=== PATIENT | male | born 1970 | race Caucasian/White ===

== ENCOUNTER 2017-07-30 02:24 | Inpatient (IN) | payer MEDICAID ==
--- NOTE | 2017-07-30 02:45 | CPEKG ---
Heart Rate: 78 RR Interval: 769 P-R Interval: 148 QRSD Interval: 88 QT Interval: 392 QTC Interval: 447 P [place]: 59 QRS [place]: 7 T Wave [place]: 42 EKG Severity - NORMAL ECG - EKG Impression: SINUS RHYTHM Electronically Signed By: Geraldo King 30-Jul-2017 06:38:42
[2017-07-30] MEDS ORDERED: NS 1,000 ML IV ONE (03:45)
[2017-07-30] MEDS ORDERED: HALOPERIDOL LACT 5 MG/ML INJ IVP ONE (03:46)
[2017-07-30 04:02] LABS: ABSOLUTE IMMATURE GRANULOCYTES 0.11 10^3/uL (0.00-0.10); ADD DIFF? NO; ADD MORPH? NO; ADD SCAN? NO; ATYPICAL LYMPHOCYTE FLAG 20 (0-99); FRAGMENT RBC FLAG 0 (0-99); HEMATOCRIT 24.4 % (40.0-51.0); HEMOGLOBIN 7.7 g/dL (13.7-17.5); LEFT SHIFT FLG 0 (0-99); LIPEMIA HEMOLYSIS FLAG 80 (0-99); MEAN CELL HEMOGLOBIN 30.1 pg (27.9-34.1); MEAN CELL HEMOGLOBIN CONCENTR. 31.6 g/dL (32.4-36.7); MEAN CELL VOLUME 95.3 fL (81.5-99.8); MEAN PLATELET VOLUME 9.8 fL (8.7-11.7); PLATELET CLUMPS FLAG 0 (0-99); PLATELET COUNT 264 10^3/uL (150-400); RED BLOOD CELL COUNT 2.56 10^6/uL (4.40-6.38); RED CELL DISTRIBUTION WIDTH 15.1 % (11.5-15.2)
[2017-07-30 04:14] LABS: ALANINE AMINOTRANSFERASE 35 IU/L (21-72); ALKALINE PHOSPHATASE 99 IU/L (38-126); ANION GAP 7 mEq/L (8-16); ASPARTATE AMINOTRANSFERASE 61 IU/L (17-59); BILIRUBIN,TOTAL 0.5 mg/dL (0.1-1.4); BILIRUBIN-CONJUGATED 0.5 mg/dL (0.0-0.5); CALCIUM 7.5 mg/dL (8.5-10.4); CARBON DIOXIDE 20 mEq/l (22-31); CHLORIDE 111 mEq/L (97-110); CREATININE 1.2 mg/dL (0.7-1.3); GLOMERULAR FILTRATION RATE > 60; GLUCOSE 88 mg/dL (70-100); POTASSIUM 4.4 mEq/L (3.5-5.2); SODIUM 138 mEq/L (134-144); SPECIMEN HEMOLYSIS 142
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
[2017-07-30 04:59] LABS: ETHANOL SERUM < 10 mg/dL (0-10); SPECIMEN HEMOLYSIS 140
[2017-07-30] MEDS ORDERED: ONDANSETRON DISINTEGRATING 4 MG TAB PO PRN (05:24)
[2017-07-30] MEDS ORDERED: ONDANSETRON 4 MG/2 ML VIAL IVP PRN ×2 (05:24→11:54)
[2017-07-30] MEDS ORDERED: NS 1,000 ML IV SCH (05:30)
--- NOTE | 2017-07-30 05:37 | PDGENHP ---
History and Physical - Chief Complaint Melena - History of Present Illness 46 yo M w/ hx of HTN comes to ED with complaints of coffee ground emesis and melena for 2-3 days. History was severely limited by patient's mental status, which was altered after administration of haloperidol in the ED. Per discussion with ED physician Dr. King, patient left AMA from [facility] a few days ago due to unclear reasons. He states that he has had coffee ground emesis and melena for 2-3 days. He drinks 1 pint of liquor daily. History Information - Allergies/Home Medication List Allergies/Adverse Reactions: No Known Allergies Allergy (Unverified 07/30/17 02:29) Home Medications: Lasix 07/30/17 [Last Taken Unknown] Lisinopril 07/30/17 [Last Taken Unknown] I have personally reviewed and updated: family history, medical history - Past Medical History hypertension - Family History Additional family history: Asked but patient unable to provide - Social History Smoking Status: Former smoker Alcohol Use: Heavy (1 fifth of liquor daily) Review of Systems Review of Systems: ROS: 10pt was reviewed & negative except for what was stated in HPI & below Physical Exam Physical Exam: Temp Pulse Resp BP Pulse Ox 36.5 C 98 22 H 190/134 H 99 07/30/17 02:30 07/30/17 02:30 07/30/17 02:30 07/30/17 02:30 07/30/17 02:30 Constitutional: uncomfortable, unkempt Eyes: PERRL, EOMI Ears, Nose, Mouth, Throat: moist mucous membranes, no oral mucosal ulcers Cardiovascular: regular rate and rhythym, systolic murmur (2/6 @ LUSB) Respiratory: no respiratory distress, clear to auscultation Gastrointestinal: normoactive bowel sounds, soft, non-tender abdomen Skin: warm, No erythema Musculoskeletal: full muscle strength, no muscle tenderness Neurologic: AAOx3, CN II-XII Intact Psychiatric: encephalopathic, anxious Lab Data & Imaging Review 07/30/17 03:55 07/30/17 03:55 WBC 10.76 10^3/uL (3.80-9.50) H 07/30/17 03:55 RBC 2.56 10^6/uL (4.40-6.38) L 07/30/17 03:55 Hgb 7.7 g/dL (13.7-17.5) L 07/30/17 03:55 Hct 24.4 % (40.0-51.0) L 07/30/17 03:55 MCV 95.3 fL (81.5-99.8) 07/30/17 03:55 MCH 30.1 pg (27.9-34.1) 07/30/17 03:55 MCHC 31.6 g/dL (32.4-36.7) L 07/30/17 03:55 RDW 15.1 % (11.5-15.2) 07/30/17 03:55 Plt Count 264 10^3/uL (150-400) 07/30/17 03:55 MPV 9.8 fL (8.7-11.7) 07/30/17 03:55 Neut % (Auto) 70.8 % (39.3-74.2) 07/30/17 03:55 Lymph % (Auto) 16.2 % (15.0-45.0) 07/30/17 03:55 Long % (Auto) 8.0 % (4.5-13.0) 07/30/17 03:55 Eos % (Auto) 2.9 % (0.6-7.6) 07/30/17 03:55 Baso % (Auto) 1.1 % (0.3-1.7) 07/30/17 03:55 Nucleat RBC Rel Count 0.0 % (0.0-0.2) 07/30/17 03:55 Absolute Neuts (auto) 7.62 10^3/uL (1.70-6.50) H 07/30/17 03:55 Absolute Lymphs (auto) 1.74 10^3/uL (1.00-3.00) 07/30/17 03:55 Absolute Monos (auto) 0.86 10^3/uL (0.30-0.80) H 07/30/17 03:55 Absolute Eos (auto) 0.31 10^3/uL (0.03-0.40) 07/30/17 03:55 Absolute Basos (auto) 0.12 10^3/uL (0.02-0.10) H 07/30/17 03:55 Absolute Nucleated RBC 0.00 10^3/uL (0-0.01) 07/30/17 03:55 Immature Gran % 1.0 % (0.0-1.1) 07/30/17 03:55 Immature Gran # 0.11 10^3/uL (0.00-0.10) H 07/30/17 03:55 Sodium 138 mEq/L (134-144) 07/30/17 03:55 Potassium 4.4 mEq/L (3.5-5.2) 07/30/17 03:55 Chloride 111 mEq/L (97-110) H 07/30/17 03:55 Carbon Dioxide 20 mEq/l (22-31) L 07/30/17 03:55 Anion Gap 7 mEq/L (8-16) L 07/30/17 03:55 BUN 26 mg/dL (7-23) H 07/30/17 03:55 Creatinine 1.2 mg/dL (0.7-1.3) 07/30/17 03:55 Estimated GFR > 60 07/30/17 03:55 Glucose 88 mg/dL (70-100) 07/30/17 03:55 Calcium 7.5 mg/dL (8.5-10.4) L 07/30/17 03:55 Total Bilirubin 0.5 mg/dL (0.1-1.4) 07/30/17 03:55 Conjugated Bilirubin 0.5 mg/dL (0.0-0.5) 07/30/17 03:55 Unconjugated Bilirubin 0.0 mg/dL (0.0-1.1) 07/30/17 03:55 AST 61 IU/L (17-59) H 07/30/17 03:55 ALT 35 IU/L (21-72) 07/30/17 03:55 Alkaline Phosphatase 99 IU/L (38-126) 07/30/17 03:55 Troponin I 0.020 ng/mL (0.000-0.034) 07/30/17 03:55 Total Protein 5.0 g/dL (6.3-8.2) L 07/30/17 03:55 Albumin 2.0 g/dL (3.5-5.0) L 07/30/17 03:55 Lipase 396 IU/L (23-300) H 07/30/17 03:55 Specimen Hemolysis 140 07/30/17 03:55 Ethyl Alcohol < 10 mg/dL (0-10) 07/30/17 03:55 Visualized and Interpreted Chest x-ray results: Yes Chest X-Ray results: no infiltrate Visualized and Interpreted EKG results: Yes EKG Interpretation: Positive for: normal sinsus rhythm, NS ST wave abnormalities Assessment & Plan Assessment: 46 yo M w/ ETOH abuse presents with coffee ground emesis and melena for 2 days. Plan: 1. Upper GI bleed - Suspect alcoholic gastritis/esophagitis or ulcerative disease based on heavy drinking history. No active bleeding noted and patient hemodynamically stable at this time. Hemoglobin 7.7 on admission. - mIVF, PPI IV BID - Repeat CBC at noon - Maintain NPO - Consult GI for EGD 2. ABLA - 2/2 above, treat acutely as above, transfuse for Hgb<7. 3. Hypertension - Uncontrolled on admission; patient reports takes lisinopril as outpatient. - Will monitor and treat conservatively with PRN agents until further stabilize 4. ETOH abuse - Patient reports drinking 1 pint of liquor daily. Last drink 4 days ago, per patient report. BAL undetectable on admission. - Will not order CIWA noting no signs of withdrawal currently - Monitor for emerging signs of withdrawal - mIVF, MVI, folate, thiamine Diet - NPO Code - Full Ppx - SCDs Dispo - Admit to OBS status
[2017-07-30] MEDS ORDERED: LABETALOL HCL 50 MG/10 ML SYR IVP ONE ×2 (06:05→06:30)
[2017-07-30] MEDS ORDERED: LABETALOL HCL 5 MG/ML 20 ML MDV ONE (06:07)
[2017-07-30] MEDS: THIAMINE HCL 100 MG TAB PO SCH (08:31)
[2017-07-30] MEDS: MULTIVITAMINS 1 EACH TAB PO SCH (08:31)
[2017-07-30] MEDS: FOLIC ACID 1 MG TAB PO SCH (08:31)
[2017-07-30] MEDS ORDERED: PANTOPRAZOLE SODIUM 40 MG in NS 100 ML IV SCH (09:00)
[2017-07-30] MEDS ORDERED: PROPOFOL 200 MG/20 ML VIAL ONE (11:27)
--- NOTE | 2017-07-30 11:29 | PDANEPAE ---
ANE Past Medical History - Pulmonary History Hx Oxygen in Use at Home: No Hx Sleep Apnea: Yes Sleep Apnea Screening Result - Last Documented: Positive - Endocrine History Hx Diabetes: No ANE Review of Systems Review of Systems: ANE Patient History - Allergies Allergies/Adverse Reactions: No Known Allergies Allergy (Unverified 07/30/17 02:29) - Home Medications Home Medications: Furosemide [Lasix 20 MG (*)] 20 mg PO DAILY 07/30/17 [Last Taken Unknown] Lisinopril [Zestril 20 mg (*)] 20 mg PO DAILY 07/30/17 [Last Taken Unknown] amLODIPine BESYLATE [Norvasc 10 mg (*)] 10 mg PO DAILY 07/30/17 [Last Taken Unknown] - NPO status NPO Since - Liquids (Date): 07/29/17 NPO Since - Liquids (Time): 23:00 NPO Since - Solids (Date): 07/29/17 NPO Since - Solids (Time): 23:00 - Smoking Hx Smoking Status: Former smoker - Alcohol Use Alcohol Use: Heavy (1 fifth of liquor daily) ANE Labs/Vital Signs - Labs Result Diagrams: 07/30/17 03:55 07/30/17 03:55 - Vital Signs Blood Pressure: 130/96 Heart Rate: 70 Respiratory Rate: 16 O2 Sat (%): 92 Height: 182.88 cm Weight: 79.379 kg ANE Physical Exam - Airway Neck exam: short neck Mallampati Score: Class 4 Mouth exam: poor dentition - Pulmonary Pulmonary: no respiratory distress - Cardiovascular Cardiovascular: regular rate and rhythym - ASA Status ASA Status: IV (pt obtunded 2 to medication given in ER)
[2017-07-30] MEDS ORDERED: LIDOCAINE 2% 100 MG/5 ML SYR ONE (11:39)
[2017-07-30] MEDS ORDERED: MIDAZOLAM 2 MG/2 ML VIAL ONE (11:40)
[2017-07-30] MEDS ORDERED: hydrALAZINE 20 MG/ML VIAL ONE (11:43)
--- NOTE | 2017-07-30 11:53 | POSTANESTH ---
Post Anesthetic Evaluation Cardiovascular Status: Normal, Stable, Similar to Pre-Op Cond Respiratory Status: Similar to Pre-op Cond. Level of Consciousness/Mental Status: Other, See Comment Pain Control: Adequate, Prn Tx Ordered Nausea/Vomiting Control: Adequate, Prn Tx Ordered Complications Possibly Related to Anesthesia: None Noted (PT ms SIMILAR TO PRE OP)
[2017-07-30] MEDS ORDERED: NALOXONE HCL 0.4 MG/ML INJ IVP PRN (11:54)
--- NOTE | 2017-07-30 12:45 | GPN ---
[f rep st] PROCEDURE NOTE PROCEDURE: Esophagogastroduodenoscopy with biopsy. PREOPERATIVE DIAGNOSIS: Hematemesis. POSTOPERATIVE DIAGNOSES: 1. Severe erosive esophagitis with ulceration extending from 40 to 35 cm, status post biopsy. 2. Moderate sized hiatal hernia. 3. Erosions in the gastric antrum. 4. Normal duodenum. 5. Status post biopsy of the antrum. INDICATIONS: 46-year-old homeless alcoholic actively drinking presented with nausea, vomiting, hemat emesis, and melena. The patient did have a drop in hematocrit. He was hemodynamically stable. He r eports a history of GI bleeding before. Has had an upper endoscopy at [facility] about a year ago . Was noted to have some mild LFT abnormalities on admission. PHYSICAL EXAMINATION: VITAL SIGNS: Stable. LUNGS: Clear. CARDIAC: Normal S1, S2. NEUROLOGIC: Patient is awake but not able to give consent. He is oriented to person but not place. The patient had been sedated in the hospital. Consent was considered emergent. FINDINGS OF PROCEDURE: Patient placed in the left lateral decubitus position. GIF-180 video scope w as passed in the oropharynx under direct visualization. The proximal esophagus remarkable for marked erosive ulcerative esophagitis from 35-40 cm. Biopsies obtained. GE junction is about 40 cm. Ther e was a moderate size hiatal hernia. Endoscope was passed to the pylorus and into the antrum. There were a few scattered antral erosions. No evidence of blood within the stomach. No ulcerations iden tified. Endoscope was passed through the pylorus in the 1st and 2nd portion of duodenum. Duodenal s weep was normal. Endoscope was brought back in the stomach. Retroflexed view of the stomach reveale d a normal angularis, fundus, and cardia. Endoscope was un-retroflexed. Biopsies were taken the ant rum body for H pylori. Endoscope was brought back in the distal esophagus. Esophageal biopsies obta ined. Endoscope was then withdrawn. IMPRESSION: Severe erosive esophagitis in the setting of nausea and vomiting in an alcoholic. RECOMMENDATIONS: 1. Await biopsy results. Continue on pantoprazole 40 mg b.i.d. 2. Patient is scheduled for right upper quadrant ultrasound. After ultrasound, may start on clear l iquid diet and advance as tolerated. Hepatitis B and C serologies also have been sent. For hepatiti s B surface antigen, HCV antibody. Thank you for allowing me to participate in the care of this patient. /[id number]/MODL
[2017-07-30] MEDS ORDERED: chlordiazePOXIDE 25 MG CAP PO ONE (13:12)
--- NOTE | 2017-07-30 13:32 | HOSPPROG ---
Hospitalist Progress Note Assessment/Plan: #erosive gastritis #acute blood loss anemia #possible etoh withdrawal #uncontrolled htn plan cont bid protonix etoh cessation home meds reconciled load with librium and cont ciwa abd us scheduled for am Subjective: wants to eat. no chest pain or sob Objective: Vital Signs Temp Pulse Resp BP Pulse Ox 37.1 C 83 26 H 176/137 H 95 07/30/17 12:27 07/30/17 12:27 07/30/17 12:31 07/30/17 12:31 07/30/17 12:27 07/29/17 07/30/17 07/31/17 05:59 05:59 05:59 Intake Total 1000 Balance 1000 gen nad cv rrr pulm clear abd soft +bs neuro tremulous ICD10 Worksheet Patient Problems: Problems Problem Status Onset GI bleed Acute Chest pain Acute Anemia Acute
[2017-07-30 13:48] LABS: % IMMATURE GRANULYOCYTES 1.4 % (0.0-1.1); ABSOLUTE IMMATURE GRANULOCYTES 0.14 10^3/uL (0.00-0.10); ADD DIFF? NO; ADD MORPH? NO; ADD SCAN? NO; ATYPICAL LYMPHOCYTE FLAG 20 (0-99); FRAGMENT RBC FLAG 0 (0-99); HEMATOCRIT 27.4 % (40.0-51.0); HEMOGLOBIN 8.6 g/dL (13.7-17.5); LEFT SHIFT FLG 10 (0-99); LIPEMIA HEMOLYSIS FLAG 80 (0-99); MEAN CELL HEMOGLOBIN 30.1 pg (27.9-34.1); MEAN CELL HEMOGLOBIN CONCENTR. 31.4 g/dL (32.4-36.7); MEAN CELL VOLUME 95.8 fL (81.5-99.8); MEAN PLATELET VOLUME 9.5 fL (8.7-11.7); PLATELET CLUMPS FLAG 0 (0-99); PLATELET COUNT 303 10^3/uL (150-400); RED BLOOD CELL COUNT 2.86 10^6/uL (4.40-6.38); RED CELL DISTRIBUTION WIDTH 15.2 % (11.5-15.2)
[2017-07-30] MEDS: PANTOPRAZOLE SODIUM 40 MG TAB PO SCH ×2 (13:53→20:16)
[2017-07-30] MEDS: LISINOPRIL 20 MG TAB PO SCH (13:53)
--- NOTE | 2017-07-30 14:25 | GCON ---
[f rep st] CONSULTATION DATE OF CONSULTATION: 07/30/2017 CHIEF COMPLAINT: Melena, hematemesis, HISTORY OF PRESENT ILLNESS: I have been asked to see in consultation this 46- year-old gentleman from Dr. Zamora for GI bleeding. This 46-year-old male is homeless. He has a history of hypertension. He also has a history of significant alcohol use. He presented to the Emergency Department with complains of coffee-grounds emesis and also melena for 2-3 days. He does have a similar history in the past. He reported that he had an upper endoscopy done at [facility]. He is unclear of the findings and records are not available. He was hemodynamically stable, but did have a drop in his hematocrit. I was asked to see the patient for further evaluation. He apparently was seen at [facility] recently left for similar symptoms, but left against medical advice. PAST MEDICAL HISTORY: Remarkable for chronic alcohol abuse, hypertension, history of hepatitis, a presumed alcoholic. SOCIAL HISTORY: He is a smoker now. He drinks alcohol, smokes marijuana. FAMILY HISTORY: Negative as it pertains to HPI. MEDICATIONS: None prior to admission. ALLERGIES: No known drug allergies. REVIEW OF SYSTEMS: Negative for 10 systems, other than mentioned in HPI. PHYSICAL EXAM: VITAL SIGNS: Blood pressure 130/96, heart rate of 70, respiratory rate 16, 92% saturation, temperature 36.4. GENERAL: The patient is somewhat sleepy, but responsive. Dishevelled appearing. HEENT: Normocephalic, atraumatic. EOMI. Mucous membranes dry. NECK: Supple. No cervical adenopathy or thyromegaly. LUNGS: Clear. CARDIAC: Normal S1, S2 without murmur. ABDOMEN: Soft , nontender. Positive bowel sounds. EXTREMITIES: Without clubbing, cyanosis, edema. SKIN: Warm, dry, intact. MUSCULOSKELETAL: Full muscle strength. No muscle tenderness. NEUROLOGIC: Nonfocal. PSYCHIATRIC: The patient is difficult to assess. Very sleepy, but does answer questions appropriately. LABORATORY DATA: White count of 10.76, hemoglobin 7.7, hematocrit 24.4. Serum chemistry: Serum sodium of 138, potassium 4.4, chloride of 111, BUN of 26, creatinine 1.2. Liver function tests: ALT of 35, AST of 61, total bilirubin of 0.5. Lipase of 396. IMPRESSION: A 46-year-old male, a chronic alcoholic, with hematemesis, melena consistent with upper gastrointestinal bleed. The patient with probably alcohol- induced gastritis, rule out PUD, erosive esophagitis. Patient with probable underlying liver disease, rule out significant portal hypertension and varices. RECOMMENDATIONS: IV Protonix, n.p.o., proceed with urgent upper endoscopy. Would recommend additional labs due to abnormal liver function tests with screen for chronic active hepatitis C and B. Would also recommend a right upper quadrant ultrasound. Will follow with you. Thank you for allowing me to participate in the care of this patient. /[id number]/MODL MTDD
[2017-07-30] MEDS: chlordiazePOXIDE 25 MG CAP PO PRN ×2 (18:50→21:44)
[2017-07-31] MEDS: chlordiazePOXIDE 25 MG CAP PO PRN ×4 (05:14→20:46)
[2017-07-31] MEDS: oxyCODONE IR 5 MG TAB PO PRN ×3 (08:26→20:46)
[2017-07-31] MEDS: MULTIVITAMINS 1 EACH TAB PO SCH (08:27)
[2017-07-31] MEDS: PANTOPRAZOLE SODIUM 40 MG TAB PO SCH ×2 (08:27→20:38)
[2017-07-31] MEDS: LISINOPRIL 20 MG TAB PO SCH (08:27)
[2017-07-31] MEDS: FOLIC ACID 1 MG TAB PO SCH (08:27)
[2017-07-31] MEDS: THIAMINE HCL 100 MG TAB PO SCH (08:27)
[2017-07-31 08:49] LABS: % IMMATURE GRANULYOCYTES 1.6 % (0.0-1.1); ABSOLUTE IMMATURE GRANULOCYTES 0.17 10^3/uL (0.00-0.10); ADD DIFF? NO; ADD MORPH? NO; ADD SCAN? NO; ATYPICAL LYMPHOCYTE FLAG 30 (0-99); FRAGMENT RBC FLAG 0 (0-99); HEMATOCRIT 23.6 % (40.0-51.0); HEMOGLOBIN 7.4 g/dL (13.7-17.5); LEFT SHIFT FLG 10 (0-99); LIPEMIA HEMOLYSIS FLAG 80 (0-99); MEAN CELL HEMOGLOBIN 30.2 pg (27.9-34.1); MEAN CELL HEMOGLOBIN CONCENTR. 31.4 g/dL (32.4-36.7); MEAN CELL VOLUME 96.3 fL (81.5-99.8); MEAN PLATELET VOLUME 9.3 fL (8.7-11.7); PLATELET CLUMPS FLAG 0 (0-99); PLATELET COUNT 267 10^3/uL (150-400); RED BLOOD CELL COUNT 2.45 10^6/uL (4.40-6.38); RED CELL DISTRIBUTION WIDTH 15.5 % (11.5-15.2)
[2017-07-31 09:10] LABS: ANION GAP 8 mEq/L (8-16); CALCIUM 7.6 mg/dL (8.5-10.4); CARBON DIOXIDE 19 mEq/l (22-31); CHLORIDE 111 mEq/L (97-110); CREATININE 1.2 mg/dL (0.7-1.3); GLOMERULAR FILTRATION RATE > 60; GLUCOSE 151 mg/dL (70-100); MAGNESIUM 1.2 mg/dL (1.6-2.3); POTASSIUM 3.6 mEq/L (3.5-5.2); SODIUM 138 mEq/L (134-144)
--- NOTE | 2017-07-31 14:33 | SOAPPROG ---
SOAP Progress Note Assessment/Plan: Assessment: Severe erosive esophagitis, no signs or symptoms of bleeding HCV Ab positive Chronic Etoh use Plan: 1. Advance diet as tolerated 2. PPI Pantoprazole 40 mg daily 3. Avoid Etoh 4. Gastric/esophageal biopsies pending. If h. pylori positive would treat x 2 weeks abx 5. Ideally needs work up and follow up for treatment of HCV No acute GI issues at this point. Will sign off. Please call with further questions 07/31/17 14:29 Subjective: CC: Hematemesis Patient sleeping Objective: Vital Signs Temp Pulse Resp BP Pulse Ox 36.9 C 93 20 148/85 H 93 07/30/17 19:27 07/31/17 11:43 07/31/17 11:43 07/31/17 11:43 07/31/17 11:43 Laboratory Results 07/31/17 08:40 07/31/17 08:40 07/30/17 07/31/17 08/01/17 05:59 05:59 05:59 Intake Total 1000 Output Total 2600 Balance -1600 Generic Name Dose Route Start Last Admin Trade Name Freq PRN Reason Stop Dose Admin Acetaminophen 650 mg 07/30/17 05:24 Tylenol PO 01/26/18 05:23 Q4HRS PRN Pain, Mild/Fever, Can Take PO Amlodipine Besylate 10 mg 07/30/17 13:10 07/31/17 08:27 Norvasc PO 01/26/18 13:09 10 mg DAILY YANIRA Administration Chlordiazepoxide HCl 25 - 50 mg 07/31/17 08:37 07/31/17 08:44 Librium PO 01/27/18 08:36 50 mg Q4 PRN Administration Agitation Clonidine 0.1 mg 07/31/17 09:15 07/31/17 10:29 Catapres PO 01/27/18 09:14 0.1 mg BID YANIRA Administration Folic Acid 1 mg 07/30/17 09:00 07/31/17 08:27 Folic Acid PO 01/26/18 08:59 1 mg DAILY YANIRA Administration Sodium Chloride 1,000 mls @ 125 mls/hr 07/30/17 05:30 07/30/17 08:31 Ns IV 01/26/18 05:29 1,000 mls CONT YANIRA Administration Lisinopril 20 mg 07/30/17 13:10 07/31/17 08:27 Zestril PO 01/26/18 13:09 20 mg DAILY YANIRA Administration Morphine Sulfate 1 - 2 mg 07/30/17 05:24 Morphine IVP 08/09/17 05:23 Q1HR PRN Pain, Severe Unable to Take PO Multivitamins 1 each 07/30/17 09:00 07/31/17 08:27 Tab-A-Chet PO 01/26/18 08:59 1 each DAILY YANIRA Administration Ondansetron HCl 4 mg 07/30/17 05:24 Zofran IVP 01/26/18 05:23 Q4HRS PRN Nausea/Vomiting, Can't Take PO Ondansetron HCl 4 mg 07/30/17 05:24 Zofran Odt PO 01/26/18 05:23 Q4HRS PRN Nausea/Vomiting, Use 1st Oxycodone HCl 5 - 10 mg 07/30/17 05:24 07/31/17 08:26 Oxycodone Ir PO 08/09/17 05:23 5 mg Q3HRS PRN Administration Pain, Severe Able to Take PO Pantoprazole Sodium 40 mg 07/30/17 13:15 07/31/17 08:27 Protonix PO 01/26/18 13:14 40 mg BID YANIRA Administration Thiamine HCl 100 mg 07/30/17 09:00 07/31/17 08:27 Vitamin B-1 PO 01/26/18 08:59 100 mg DAILY YANIRA Administration Discontinued Medications Generic Name Dose Route Start Last Admin Trade Name Freq PRN Reason Stop Dose Admin Chlordiazepoxide HCl 50 mg 07/30/17 13:12 07/30/17 13:53 Librium PO 07/30/17 13:13 50 mg ONCE ONE Administration Chlordiazepoxide HCl 25 mg 07/30/17 13:12 07/31/17 05:14 Librium PO 01/26/18 13:11 25 mg Q8 PRN Administration Agitation Clonidine 0.1 mg 07/30/17 19:30 07/30/17 20:16 Catapres PO 07/30/17 19:31 0.1 mg ONCE ONE Administration Haloperidol Lactate 2.5 mg 07/30/17 03:46 07/30/17 04:17 Haldol Injection IVP 07/30/17 03:47 2.5 mg EDNOW ONE Administration Hydralazine HCl Confirm 07/30/17 11:43 Apresoline Administered 07/30/17 11:44 Dose 20 mg .ROUTE .STK-MED ONE Sodium Chloride 1,000 mls @ 0 mls/hr 07/30/17 03:45 07/30/17 04:17 Ns IV 07/30/17 03:46 1,000 mls ONCE ONE Administration Wide Open Pantoprazole Sodium 40 mg/ 100 mls @ 200 mls/hr 07/30/17 09:00 07/30/17 08:31 Sodium Chloride IV 01/26/18 08:59 100 mls BID YANIRA Administration Labetalol HCl 10 mg 07/30/17 06:05 07/30/17 06:18 Labetalol Hcl IVP 07/30/17 06:06 10 mg ONCE ONE Administration Labetalol HCl Confirm 07/30/17 06:07 Trandate Injection Administered 07/30/17 06:08 Dose 100 mg .ROUTE .STK-MED ONE Labetalol HCl 10 mg 07/30/17 06:30 07/30/17 06:38 Labetalol Hcl IVP 07/30/17 06:31 10 mg ONCE ONE Administration Lidocaine HCl Confirm 07/30/17 11:39 Lidocaine Hcl 2% Administered 07/30/17 11:40 Dose 100 mg .ROUTE .STK-MED ONE Midazolam HCl Confirm 07/30/17 11:40 Versed Administered 07/30/17 11:41 Dose 2 mg .ROUTE .STK-MED ONE Naloxone HCl 0.1 mg 07/30/17 11:54 Narcan IVP 07/30/17 12:54 Q2M PRN PACU Resp Rate <10/min Ondansetron HCl 2 - 4 mg 07/30/17 11:54 Zofran IVP 07/30/17 12:54 Q10M PRN PACU, Nausea/Vomiting Propofol Confirm 07/30/17 11:27 Diprivan Administered 07/30/17 11:28 Dose 200 mg .ROUTE .STK-MED ONE Physical Exam - Physical Exam General Appearance: other (Sleepy but arousable) Respiratory: lungs clear Cardiac/Chest: regular rate, rhythm Abdomen: normal bowel sounds, non-tender, soft ICD10 Worksheet Patient Problems: Problems Problem Status Onset Anemia Acute Chest pain Acute GI bleed Acute
--- NOTE | 2017-07-31 15:48 | HOSPPROG ---
Hospitalist Progress Note Assessment/Plan: #erosive gastritis #acute blood loss anemia #possible etoh withdrawal #uncontrolled htn # hepatitis-C plan cont bid protonix etoh cessation continue librium and ciwa start clonidine recommend outpatient treatment for hepatitis-C disposition: Patient will be changed to inpatient status given his persistent hypertension and anemia. Will repeat labs in the morning. If his blood pressure is controlled and his H&H is stable will likely be able to discharge tomorrow. Subjective: Denies any abdominal pain. He has had no further bleeding. He does reported tremor. Denies any hallucinations. Objective: Vital Signs Temp Pulse Resp BP Pulse Ox 36.9 C 93 20 148/85 H 93 07/30/17 19:27 07/31/17 11:43 07/31/17 11:43 07/31/17 11:43 07/31/17 11:43 Laboratory Results 07/31/17 08:40 07/31/17 08:40 07/30/17 07/31/17 08/01/17 05:59 05:59 05:59 Intake Total 1000 Output Total 2600 Balance -1600 - Physical Exam Constitutional: no apparent distress Cardiovascular: regular rate and rhythym, no murmur, rub, or gallop Respiratory: no respiratory distress, no rales or rhonchi, clear to auscultation Gastrointestinal: normoactive bowel sounds, soft, non-tender abdomen, no palpable masses, No guarding, No rebound Neurologic: AAOx3, CN II-XII Intact, other ( Tremor) Psychiatric: not encephalopathic, anxious, agitated ICD10 Worksheet Patient Problems: Problems Problem Status Onset GI bleed Acute Chest pain Acute Anemia Acute
--- NOTE | 2017-07-31 16:49 | ASMTCMCOM ---
CM Note CM Note Notes: Pt has been admitted with a lower GI bleed. He has a hx of etoh abuse and is on CIWA protocol. He lives in [place]. He was at [facility] a few days ago for the same sx and left AMA. S/p EGD and bx. Per RN, pt has been uncooperative. CM will follow for any d/c needs. Date Signed: 07/31/2017 04:49 PM Electronically Signed By:Vandana Mir
[2017-08-01] MEDS: chlordiazePOXIDE 25 MG CAP PO PRN ×3 (01:26→23:25)
[2017-08-01] MEDS: oxyCODONE IR 5 MG TAB PO PRN ×2 (02:15→13:12)
[2017-08-01 05:23] LABS: % IMMATURE GRANULYOCYTES 2.1 % (0.0-1.1); ABSOLUTE IMMATURE GRANULOCYTES 0.23 10^3/uL (0.00-0.10); ADD DIFF? NO; ADD MORPH? NO; ADD SCAN? NO; ATYPICAL LYMPHOCYTE FLAG 30 (0-99); FRAGMENT RBC FLAG 30 (0-99); HEMATOCRIT 25.3 % (40.0-51.0); LEFT SHIFT FLG 20 (0-99); LIPEMIA HEMOLYSIS FLAG 80 (0-99); MEAN CELL HEMOGLOBIN 30.2 pg (27.9-34.1); MEAN CELL HEMOGLOBIN CONCENTR. 31.6 g/dL (32.4-36.7); MEAN CELL VOLUME 95.5 fL (81.5-99.8); MEAN PLATELET VOLUME 9.1 fL (8.7-11.7); PLATELET CLUMPS FLAG 0 (0-99); PLATELET COUNT 351 10^3/uL (150-400); RED BLOOD CELL COUNT 2.65 10^6/uL (4.40-6.38); RED CELL DISTRIBUTION WIDTH 15.3 % (11.5-15.2)
[2017-08-01 05:37] LABS: ANION GAP 6 mEq/L (8-16); CALCIUM 7.9 mg/dL (8.5-10.4); CARBON DIOXIDE 25 mEq/l (22-31); CHLORIDE 107 mEq/L (97-110); CREATININE 1.3 mg/dL (0.7-1.3); GLOMERULAR FILTRATION RATE 59; GLUCOSE 93 mg/dL (70-100); MAGNESIUM 1.1 mg/dL (1.6-2.3); POTASSIUM 3.8 mEq/L (3.5-5.2); SODIUM 138 mEq/L (134-144)
[2017-08-01] MEDS ORDERED: PROTOCOL MAGNESIUM 1 DOSE IV PRN (09:13)
[2017-08-01] MEDS ORDERED: MAGNESIUM SULF 2 GM/WATER 50 ML IV ONE (09:44)
[2017-08-01] MEDS: THIAMINE HCL 100 MG TAB PO SCH (10:13)
[2017-08-01] MEDS: ACETAMINOPHEN 325 MG TAB PO PRN ×2 (10:13→21:06)
[2017-08-01] MEDS: PANTOPRAZOLE SODIUM 40 MG TAB PO SCH ×2 (10:14→21:05)
[2017-08-01] MEDS: FOLIC ACID 1 MG TAB PO SCH (10:14)
[2017-08-01] MEDS: LISINOPRIL 20 MG TAB PO SCH (10:14)
[2017-08-01] MEDS: MULTIVITAMINS 1 EACH TAB PO SCH (10:15)
--- NOTE | 2017-08-01 14:44 | HOSPPROG ---
Hospitalist Progress Note Assessment/Plan: This is a 46-year-old male with history of alcohol abuse presenting with: #erosive gastritis (improving) #acute blood loss anemia #etoh withdrawal with over sedation #uncontrolled htn # hepatitis-C plan cont bid protonix etoh cessation Start iron replacement Will decrease Librium librium and treat breakthrough withdrawal symptoms with oral Ativan Continue clonidine recommend outpatient treatment for hepatitis-C disposition: Patient can be discharged from the hospital once his H&H is stable and his blood pressure is controlled. Subjective: Patient had a headache this morning that has since resolved. Currently denies any visual changes. Denies any chest pain. He is tolerating a regular diet. He is no longer having any nausea or vomiting. Objective: Vital Signs Temp Pulse Resp BP Pulse Ox 36.5 C 96 18 131/97 H 93 08/01/17 13:18 08/01/17 13:18 08/01/17 13:18 08/01/17 13:18 08/01/17 13:18 Laboratory Results 08/01/17 04:51 08/01/17 04:51 - Physical Exam Constitutional: no apparent distress, appears nourished, not in pain Cardiovascular: regular rate and rhythym, no murmur, rub, or gallop Respiratory: no respiratory distress, no rales or rhonchi, clear to auscultation Gastrointestinal: normoactive bowel sounds, soft, non-tender abdomen, no palpable masses, No guarding, No rebound Neurologic: AAOx3, CN II-XII Intact, No facial droop Psychiatric: interacting appropriately, other (Seems overly sedated) ICD10 Worksheet Patient Problems: Problems Problem Status Onset GI bleed Acute Chest pain Acute Anemia Acute
[2017-08-01] MEDS: FERROUS SULFATE 325 MG TAB PO SCH ×2 (17:22→21:06)
[2017-08-01] MEDS ORDERED: hydrALAZINE 25 MG TAB PO ONE (22:49)
[2017-08-01] MEDS: LORazepam 1 MG TAB PO PRN (23:25)
[2017-08-02 05:55] LABS: ADD DIFF? YES; ADD MORPH? NO; ADD SCAN? NO; ANION GAP 6 mEq/L (8-16); ATYPICAL LYMPHOCYTE FLAG 20 (0-99); CALCIUM 7.8 mg/dL (8.5-10.4); CARBON DIOXIDE 25 mEq/l (22-31); CHLORIDE 104 mEq/L (97-110); CREATININE 1.5 mg/dL (0.7-1.3); FRAGMENT RBC FLAG 0 (0-99); GLOMERULAR FILTRATION RATE 50; GLUCOSE 106 mg/dL (70-100); HEMATOCRIT 25.5 % (40.0-51.0); LEFT SHIFT FLG 30 (0-99); LIPEMIA HEMOLYSIS FLAG 80 (0-99); MAGNESIUM 1.7 mg/dL (1.6-2.3); MEAN CELL HEMOGLOBIN CONCENTR. 31.4 g/dL (32.4-36.7); MEAN CELL VOLUME 95.5 fL (81.5-99.8); MEAN PLATELET VOLUME 9.2 fL (8.7-11.7); PLATELET CLUMPS FLAG 0 (0-99); PLATELET COUNT 334 10^3/uL (150-400); POTASSIUM 4.1 mEq/L (3.5-5.2); RED BLOOD CELL COUNT 2.67 10^6/uL (4.40-6.38); RED CELL DISTRIBUTION WIDTH 14.9 % (11.5-15.2); SODIUM 135 mEq/L (134-144)
[2017-08-02] MEDS ORDERED: MAGNESIUM SULF 1 GM/DEXTROSE 100 ML IV ONE (07:27)
[2017-08-02 08:39] LABS: PLATELET ESTIMATE ADEQUATE (ADEQ); POLYCHROMASIA 1+
[2017-08-02 08:41] LABS: HYPOCHROMIA 1+
[2017-08-02] MEDS: THIAMINE HCL 100 MG TAB PO SCH (09:05)
[2017-08-02] MEDS: MULTIVITAMINS 1 EACH TAB PO SCH (09:05)
[2017-08-02] MEDS: FERROUS SULFATE 325 MG TAB PO SCH ×2 (09:05→22:03)
[2017-08-02] MEDS: FOLIC ACID 1 MG TAB PO SCH (09:06)
[2017-08-02] MEDS: PANTOPRAZOLE SODIUM 40 MG TAB PO SCH ×2 (09:06→22:03)
[2017-08-02] MEDS: LISINOPRIL 20 MG TAB PO SCH (09:07)
[2017-08-02] MEDS: chlordiazePOXIDE 25 MG CAP PO PRN ×2 (09:08→19:53)
[2017-08-02] MEDS: ACETAMINOPHEN 325 MG TAB PO PRN (09:09)
[2017-08-02] MEDS: LORazepam 1 MG TAB PO PRN ×2 (09:09→19:36)
--- NOTE | 2017-08-02 16:13 | ASMTCMCOM ---
CM Note CM Note Notes: Today pt expresses interest in drug/alcohol treatment at d/c. Pt is provided numerous resources, including treatment programs all over the state since location does not matter to him, pt states he will make phone calls. As pt insurance is Medicaid there may be limited resources or long wait lists. Pt is familiar w resources in [place], reports he has graduated from the [employer] and is a [facility] lll, he relapsed due to his divorce. Pt reports he has family but they are not in a position to assist w payment for inpatient treatment. CM to follow. Date Signed: 08/02/2017 04:12 PM Electronically Signed By:PATRICIA Koch
--- NOTE | 2017-08-02 18:01 | HOSPPROG ---
Hospitalist Progress Note Assessment/Plan: DIAGNOSES: #erosive gastritis (improving) #acute blood loss anemia from acute upper GI bleed #etoh withdrawal requiring ongoing CIWA monitor and benzodiazepine #gait instability due to etoh, encephalopathy #uncontrolled htn #hepatitis-C PLANS: -continue ciwa and benzo -continue thiamine -PT OT -follow Hg and hemodynamics -PPI -will eventually need more etoh counseling as he is will to accept SUBJECTIVE: denies pain neither pt or nurse have noted any bleeding OBJECTIVE Vitals reviewed: stable Exam: quite somnolent but arousable, mildly confused at present but cooperative, minimal tremor skin warm dry color ok resps not labored lungs clear BSs heart regular abd soft nondistended nontender, bowel sounds present limbs warm, no edema iv site ok Lab data: Hg stable today Objective: Vital Signs Temp Pulse Resp BP Pulse Ox 36.8 C 88 20 164/98 H 94 08/02/17 16:00 08/02/17 16:00 08/02/17 16:00 08/02/17 16:00 08/02/17 16:00 Laboratory Results 08/02/17 05:22 08/02/17 05:22 08/01/17 08/02/17 08/03/17 06:59 06:59 06:59 Intake Total 1740 Balance 1740 ICD10 Worksheet Patient Problems: Problems Problem Status Onset Anemia Acute Chest pain Acute GI bleed Acute
[2017-08-02] MEDS ORDERED: NS 1,000 ML IV SCH (20:15)
[2017-08-03] MEDS: LORazepam 1 MG TAB PO PRN ×5 (00:43→22:26)
[2017-08-03] MEDS: chlordiazePOXIDE 25 MG CAP PO PRN ×2 (02:03→08:28)
[2017-08-03 05:26] LABS: ALANINE AMINOTRANSFERASE 28 IU/L (21-72); ALBUMIN 2.1 g/dL (3.5-5.0); ALKALINE PHOSPHATASE 92 IU/L (38-126); ANION GAP 8 mEq/L (8-16); ASPARTATE AMINOTRANSFERASE 21 IU/L (17-59); BILIRUBIN,TOTAL 0.2 mg/dL (0.1-1.4); BILIRUBIN-CONJUGATED 0.2 mg/dL (0.0-0.5); CARBON DIOXIDE 23 mEq/l (22-31); CHLORIDE 108 mEq/L (97-110); CREATININE 1.5 mg/dL (0.7-1.3); GLOMERULAR FILTRATION RATE 50; GLUCOSE 88 mg/dL (70-100); MAGNESIUM 1.8 mg/dL (1.6-2.3); POTASSIUM 4.5 mEq/L (3.5-5.2); SODIUM 139 mEq/L (134-144); TOTAL PROTEIN 4.9 g/dL (6.3-8.2)
[2017-08-03 05:31] LABS: ADD DIFF? YES; ADD MORPH? NO; ADD SCAN? NO; ATYPICAL LYMPHOCYTE FLAG 30 (0-99); FRAGMENT RBC FLAG 0 (0-99); HEMATOCRIT 24.6 % (40.0-51.0); HEMOGLOBIN 7.7 g/dL (13.7-17.5); LEFT SHIFT FLG 30 (0-99); LIPEMIA HEMOLYSIS FLAG 80 (0-99); MEAN CELL HEMOGLOBIN 29.2 pg (27.9-34.1); MEAN CELL HEMOGLOBIN CONCENTR. 31.3 g/dL (32.4-36.7); MEAN CELL VOLUME 93.2 fL (81.5-99.8); MEAN PLATELET VOLUME 9.1 fL (8.7-11.7); PLATELET CLUMPS FLAG 10 (0-99); PLATELET COUNT 378 10^3/uL (150-400); RED BLOOD CELL COUNT 2.64 10^6/uL (4.40-6.38)
[2017-08-03 06:26] LABS: HYPOCHROMIA 1+; POLYCHROMASIA 1+
[2017-08-03 06:27] LABS: PLATELET ESTIMATE ADEQUATE (ADEQ)
[2017-08-03] MEDS ORDERED: MAGNESIUM SULF 1 GM/DEXTROSE 100 ML IV ONE (07:14)
[2017-08-03] MEDS: FERROUS SULFATE 325 MG TAB PO SCH ×2 (08:27→20:38)
[2017-08-03] MEDS: THIAMINE HCL 100 MG TAB PO SCH (08:27)
[2017-08-03] MEDS: FOLIC ACID 1 MG TAB PO SCH (08:27)
[2017-08-03] MEDS: PANTOPRAZOLE SODIUM 40 MG TAB PO SCH ×2 (08:27→20:38)
[2017-08-03] MEDS: MULTIVITAMINS 1 EACH TAB PO SCH (08:28)
[2017-08-03] MEDS: ACETAMINOPHEN 325 MG TAB PO PRN ×2 (08:28→22:25)
[2017-08-03] MEDS: LISINOPRIL 20 MG TAB PO SCH (08:28)
[2017-08-03] MEDS: LABETALOL HCL 100 MG TAB PO SCH ×2 (10:38→20:39)
--- NOTE | 2017-08-03 15:29 | ASMTCMCOM ---
CM Note CM Note Notes: Josee Alvarez was able to meet w pt this am (a note may become available but is not observed as input at this time), recommends psych consult for med mngmnt. 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 Pt reports he in the beginnings stages of applying for social security disability. 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 Pt reports he has not been able to locate Mdcd d/a treatment resources, he was not able to elaborate specifically on these efforts but expressed frustration that the treatment available immediately costs thousands of dollars Psych to consult, CM to follow. Date Signed: 08/03/2017 03:28 PM Electronically Signed By:PATRICIA Koch
--- NOTE | 2017-08-03 16:14 | HOSPPROG ---
Hospitalist Progress Note Assessment/Plan: Assessment: 46-year-old male with history of alcohol abuse presenting with acute upper GI bleed secondary to erosive gastritis, c/b acute alcohol withdraw and BRYCE Plan: # erosive gastritis/esophagitis. acute, 2/2 alcohol abuse and vomiting # acute blood loss anemia. hgb 7.7, transfuse if < 7 or bleeding, BMs brown today # etoh withdrawal. acute, evidenced by tremulousness and anxiety, HTN -adjust from librium to PRN ativan today, gauge effect # HTN. chronic, acutely uncontrolled in setting of EtOH w/d -adjust Rx to amlodipine 10mg daily + labetalol 100mg bid, uptitrate tomorrow if indicated, stopped clonidine # hepatitis-C. chronic infxn, untreated, liver synthetic fxn currently normal # alcohol abuse. chronic, patient reports strong addiction and concomitant substance use (meth), high risk of relapse once discharged -counseled patient extensively that his stressful social-determinants of health will continue to place him at high risk unless he has regular f/u and support -d/w Dr. Williamson, she has recommended TLC eval for possible underlying dual- diagnosis mood disorder and potential for inpatient tx program -hold on naltrexone at this time, unless good outpatient tx f/u can be established # acute upper GI bleed. 2/2 gastritis/esophagitis -d/w Dr. Dickinson, recommends PPI bid and tx GI symptoms, alcohol cessation Diet. Regular as sanjay PPx. Mod risk, SCDs, hold pharm given bleeding Code. Full Dispo. ADD 08/04, pending stabilization of above Subjective: patient tearful, fearful of relapse, having brown BMs, eating well Objective: Vital Signs Temp Pulse Resp BP Pulse Ox 36.3 C 79 18 142/89 H 91 L 08/03/17 12:00 08/03/17 12:00 08/03/17 12:00 08/03/17 12:00 08/03/17 12:00 Laboratory Results 08/03/17 05:10 08/03/17 04:44 08/02/17 08/03/17 08/04/17 05:59 05:59 05:59 Intake Total 1740 161 380 Balance 1740 354 380 - Time Spent With Patient Time Spent with Patient: greater than 35 minutes Time Spent with Patient: Greater than 35 minutes spent on this patients care, greater than 50% of time spent counseling, educating, and coordinating care regarding the above mentioned plan. - Pending Discharge Pending Discharge Within 24 Hours: Yes Pending Discharge Date: 08/04/17 Pending Discharge Time: 11:00 - Physical Exam Constitutional: not in pain, chronically ill appearing, No uncomfortable Cardiovascular: regular rate and rhythym, no murmur, rub, or gallop, No edema Respiratory: no respiratory distress, no rales or rhonchi, clear to auscultation Gastrointestinal: normoactive bowel sounds, distension (mild), No tenderness, No guarding Neurologic: AAOx3, other (no tremulousness), No asterixes Psychiatric: thought process linear, anxious, No agitated ICD10 Worksheet Patient Problems: Problems Problem Status Onset GI bleed Acute Chest pain Acute Anemia Acute
[2017-08-03] MEDS ORDERED: hydrALAZINE 20 MG/ML VIAL IVP PRN (16:17)
[2017-08-03 20:59] VITALS: RESP 18
[2017-08-03 21:13] LABS: COLOR YELLOW; LEUKOCYTE ESTERASE,URINE NEGATIVE (NEGATIVE); NITRITE,URINE NEGATIVE (NEGATIVE)
[2017-08-03 21:19] LABS: MUCUS TRACE /lpf (NONE-1+)
[2017-08-03] MEDS ORDERED: NS 1,000 ML IV ONE (22:41)
[2017-08-03] MEDS ORDERED: METOCLOPRAMIDE 10 MG TAB PO ONE (22:43)
[2017-08-04] MEDS: LORazepam 2 MG/ML INJ IVP PRN ×2 (03:38→08:46)
[2017-08-04 08:02] VITALS: BP 147/87; PULSE 96; TEMP 98.7; O2SAT 97
[2017-08-04] MEDS: THIAMINE HCL 100 MG TAB PO SCH (08:31)
[2017-08-04] MEDS: FERROUS SULFATE 325 MG TAB PO SCH (08:31)
[2017-08-04] MEDS: MULTIVITAMINS 1 EACH TAB PO SCH (08:31)
[2017-08-04] MEDS: FOLIC ACID 1 MG TAB PO SCH (08:31)
[2017-08-04] MEDS: PANTOPRAZOLE SODIUM 40 MG TAB PO SCH (08:31)
[2017-08-04] MEDS: LABETALOL HCL 100 MG TAB PO SCH (08:31)
[2017-08-04 08:37] LABS: ADD DIFF? YES; ADD MORPH? NO; ADD SCAN? NO; ATYPICAL LYMPHOCYTE FLAG 20 (0-99); FRAGMENT RBC FLAG 0 (0-99); HEMATOCRIT 26.8 % (40.0-51.0); HEMOGLOBIN 8.5 g/dL (13.7-17.5); LEFT SHIFT FLG 50 (0-99); LIPEMIA HEMOLYSIS FLAG 80 (0-99); MEAN CELL HEMOGLOBIN 29.5 pg (27.9-34.1); MEAN CELL HEMOGLOBIN CONCENTR. 31.7 g/dL (32.4-36.7); MEAN CELL VOLUME 93.1 fL (81.5-99.8); MEAN PLATELET VOLUME 8.8 fL (8.7-11.7); PLATELET CLUMPS FLAG 0 (0-99); PLATELET COUNT 458 10^3/uL (150-400); RED BLOOD CELL COUNT 2.88 10^6/uL (4.40-6.38); RED CELL DISTRIBUTION WIDTH 15.4 % (11.5-15.2)
[2017-08-04 08:57] LABS: ALBUMIN 2.5 g/dL (3.5-5.0); ANION GAP 8 mEq/L (8-16); CALCIUM 8.4 mg/dL (8.5-10.4); CARBON DIOXIDE 23 mEq/l (22-31); CHLORIDE 110 mEq/L (97-110); CREATININE 1.6 mg/dL (0.7-1.3); GLOMERULAR FILTRATION RATE 47; GLUCOSE 147 mg/dL (70-100); MAGNESIUM 1.9 mg/dL (1.6-2.3); POTASSIUM 4.7 mEq/L (3.5-5.2); SODIUM 141 mEq/L (134-144)
[2017-08-04] MEDS ORDERED: LABETALOL HCL 100 MG TAB PO SCH (09:00)
[2017-08-04] MEDS ORDERED: LABETALOL HCL 200 MG TAB PO SCH (09:00)
[2017-08-04 09:22] LABS: HYPOCHROMIA 1+; MACROCYTES 1+; PLATELET ESTIMATE INCREASED (ADEQ)
--- NOTE | 2017-08-04 12:14 | ASMTCMCOM ---
CM Note CM Note Notes: Pt has been waiting for psych eval this morning. Rn finally spoke with [facility] and they offered to see pt if he can take a cab there at [place]. Pt DC'd. Clothes provided. Cab voucher provided to [facility] Date Signed: 08/04/2017 12:13 PM Electronically Signed By:Cele Fraser LCSW
--- NOTE | 2017-08-04 12:16 | ASDISCHSUM ---
Discharge Information Plan Status:Home with No Needs Medically Cleared to Leave: Discharge Date: D/C Disposition: ADT D/C Disposition:Home, Routine, Self-Care Projected Discharge Date: Transportation at D/C: Discharge Delay Reason: Follow-Up Date: Discharge Slot: Final Diagnosis: Placement Information Patient Contact Information Contact Name:LUANA Relationship: Address: Home Phone: Work Phone: City: Alternate Phone: State/[place] Code: Email: Financial Information Financial Class:MD Primary Plan Desc:[employer] [place] Primary Plan Number:[id number] Secondary Plan Desc: Secondary Plan Number: Assessment Information [facility] CM Progress Note CM Note CM Note Notes: Pt has been admitted with a lower GI bleed. He has a hx of etoh abuse and is on [facility] protocol. He lives in [place]. He was at [facility] a few days ago for the same sx and left AMA. S/p EGD and bx. Per RN, pt has been uncooperative. CM will follow for any d/c needs. Date Signed: 07/31/2017 04:49 PM Electronically Signed By:PATRICIA Pedro [facility] CM Progress Note CM Note CM Note Notes: Today pt expresses interest in drug/alcohol treatment at d/c. Pt is provided numerous resources, including treatment programs all over the state since location does not matter to him, pt states he will make phone calls. As pt insurance is Medicaid there may be limited resources or long wait lists. Pt is familiar w resources in [place], reports he has graduated from the [employer] and is a [employer] lll, he relapsed due to his divorce. Pt reports he has family but they are not in a position to assist w payment for inpatient treatment. CM to follow. Date Signed: 08/02/2017 04:12 PM Electronically Signed By:PATRICIA Koch [facility] CM Progress Note CM Note CM Note Notes: Josee Alvarez was able to meet w pt this am (a note may become available but is not observed as input at this time), recommends psych consult for med mngmnt. 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 Pt reports he in the beginnings stages of applying for social security disability. Pt reports he most recently worked [employer] for local [employer] and has not been able to work due to medical issues. Pt reports he has not been able to locate Mdcd d/a treatment resources, he was not able to elaborate specifically on these efforts but expressed frustration that the treatment available immediately costs thousands of dollars Psych to consult, CM to follow. Date Signed: 08/03/2017 03:28 PM Electronically Signed By:PATRICIA Koch [facility] CM Progress Note CM Note CM Note Notes: Pt has been waiting for psych eval this morning. Rn finally spoke with [facility] and they offered to see pt if he can take a cab there at [place]. Pt DC'd. Clothes provided. Cab voucher provided to [facility] Date Signed: 08/04/2017 12:13 PM Electronically Signed By:KENRICK ComerW Intervention Information
--- NOTE | 2017-08-04 17:32 | PDDCSUM ---
Discharge Summary Discharge Summary: DISCHARGE SUMMARY FOLLOW-UP ITEMS: Outpatient mental health care DATE OF ADMISSION: 07/30/17 DATE OF DISCHARGE: 08/04/2017 DISCHARGE DIAGNOSES: 1. Acute erosive gastritis/esophagitis 2. Acute blood loss anemia 3. Acute upper GI bleed 4. Acute alcohol withdrawal 5. Chronic hypertension 6. Chronic hepatitis-C 7. Chronic alcohol abuse 8. Acute kidney injury CONSULTATIONS: Gastroenterology PROCEDURES / IMAGING: Upper endoscopy demonstrating erosive gastritis and esophagitis CHIEF COMPLAINT: Acute abdominal pain SUBJECTIVE: Patient is feeling well at time of discharge, he is less tremulous, he is requesting discharge at this time PHYSICAL EXAM ON DISCHARGE: Systolic blood pressure is 150, heart rates 80, afebrile overnight, satting well on room air, mildly tremulous, no asterixis, alert awake oriented x3, concentration 7/7, patient's speech is rapid, his affect is labile, he is cooperative also commands LABS ON DISCHARGE: Hemoglobin 8.5, white blood cell count 9600, platelets 460,000, creatinine 1.6, potassium 4.7 HOSPITAL COURSE BY PROBLEM: 1. Acute erosive gastritis/esophagitis. The patient experienced abdominal pain with GI bleed secondary to gastritis in the setting of alcohol abuse. Patient underwent upper endoscopy which demonstrated no focal ulcerations, twice daily PPI was recommended. The patient will be continued on twice daily PPI for 1 month, and should follow up with [facility] the [facility] prior to discontinuing. He has biopsies pending at time of discharge. 2. Acute upper GI bleed. With resultant acute blood loss anemia, secondary to gastritis and esophagitis outlined above, he did not require blood transfusion. His hemoglobin was stable at 8.5 at time of discharge. He had a repeat hemoglobin level drawn when he follows up with [facility] the [facility]. 3. Acute alcohol withdrawal. Evidence by tremulousness, agitation, anxiety, tachycardia. His alcohol level was negative at time of admission. He initially received scheduled Librium and was transitioned to as needed Ativan. He received a limited supply of Ativan at time of discharge, repeat recommending that he take no more than 2 tabs per day, 5 tabs total prescribed. He was advised that he not drink alcohol while he is attempting to withdrawal. 4. Chronic alcohol abuse. Patient has a history of chronic alcohol abuse and has a suspected underlying mental health disorder. His case was reviewed by our psychiatrist rehabilitation specialist, and they recommended EPS evaluation. EPS contacted the patient prior to discharge, and he was transferred to an [facility] evaluation site at time of discharge. 5. Acute kidney injury. Most likely secondary to renal hypoperfusion without any evidence of hypertensive emergency on urinalysis. The patient received IV fluids but was intermittently non adherent to them. We recommended ongoing treatment and workup, but the patient requested to be discharged. He should have outpatient chemistries performed when he follows up with [facility] the [facility] , if not sooner. He is scheduled to see his primary care provider this Sunday, and I would recommend the repeat as outpatient labs at that time. 6. Chronic hypertension. Patient experienced acute worsening of his hypertension during this hospitalization secondary to acute alcohol withdrawal. We also held his lisinopril and hydrochlorothiazide given his acute kidney injury. Patient was transiently placed on a beta-shanta, but the patient has reported that he will resume his JOVANI inhibitor and hydrochlorothiazide after discharge, as well as amlodipine 10 mg daily. If patient's creatinine level continues to rise, it is not advisable that he continue these medications, but the patient seems to want to continue them anyway. I recommend that he continue this conversation with his primary care provider on Sunday when he follows up. DISCHARGE MEDICATIONS: Please see official discharge medication reconciliation sheet in chart all home medications with the addition of as needed Ativan, 5 tabs prescribed, pantoprazole 40mg bid. DISCHARGE INSTRUCTIONS: Please follow up with [facility] this afternoon at discharge, then her primary care provider on Sunday, maintain complete sobriety from alcohol. TIME SPENT: Greater than 30 minutes were spent on direct patient care, as well as discharge planning and preparation.
== END 2017-08-04 12:47 | disposition home or self-care (01) | DRG 378 ==
LOC: INTOOBSV 05:02 → F3N 07:39 → OBSVTOIN 07-31 18:40
PROVIDERS: ADMIT Student in an Organized Health Care Education/Training Program; ATTEND Student in an Organized Health Care Education/Training Program
PROC: 0DB58ZX Excision of Esophagus, Via Natural or Artificial Opening Endoscopic, Diagnostic (ICD-10-PCS; 2017-07-30)
PROC: 0DB68ZX Excision of Stomach, Via Natural or Artificial Opening Endoscopic, Diagnostic (ICD-10-PCS; principal; 2017-07-30 11:30)
DX: K29.01 Acute gastritis with bleeding (principal); K22.10 Ulcer of esophagus without bleeding; D62 Acute posthemorrhagic anemia; N17.9 Acute kidney failure, unspecified; F10.239 Alcohol dependence with withdrawal, unspecified; I10 Essential (primary) hypertension; B19.20 Unspecified viral hepatitis C without hepatic coma; K46.9 Unspecified abdominal hernia without obstruction or gangrene; G47.30 Sleep apnea, unspecified; Z87.891 Personal history of nicotine dependence; Z59.0 Homelessness
CPT/HCPCS: 96374; 97162-GP; G0378; G0472; G0480; J0360; J1200; J2001; J2060; J2250; J2704; J3475; J3490